=== PATIENT | female | born 1990 | race Caucasian/White ===

== ENCOUNTER → 2018-04-03 | Outpatient (CLI) | payer OTHER ==
[~2018-04-03] MED LIST: BACTRIM DS 8001 TA1 PO; CLEOCIN HCL150 MG PO; DULCOLAX5 MG PO; FLAGYL500 MG PO; GAS RELIEF80 MG PO; K-DUR 2020 MEQ PO; MOTRIN800 MG PO; PRENATAL1 TA1 PO; PYRIDIUM200 MG PO; TRAMADOL HCL50 MG PO; VICODIN 5/500 505 MG PO
== END | disposition home or self-care (01) ==
LOC: CT 07:48
DX: R10.2 Pelvic and perineal pain (principal); M79.9 Soft tissue disorder, unspecified

== ENCOUNTER → 2019-02-14 | Outpatient (CLI) | payer OTHER ==
--- NOTE | ~2019-02-14 | EKG ---
[place], [place] ELECTROCARDIOGRAM REPORT NAME: JAYDEN FERNANDO UNIT #: [id number] ROOM: DOCTOR: EPIPHANY DRAFT REPORT BIRTHDATE: [birth year] [facility] Test Date: 2019-02-14 Test Time: 10:39:06 Pat Name: JAYDEN FERNANDO Department: Room: OPS Gender: F Cosmetic Manager: Cande Petty : 1990 Requested By: GIANLUCA CHURCH Order Number: [id number] Reading MD: Mary Lou Fong MD Measurements Intervals [place] Rate: 60 P: 18 SC: 130 QRS: 13 QRSD: 91 T: -3 QT: 437 QTc: 437 Interpretive Statements Sinus rhythm Borderline T abnormalities, inferior leads Electronically Signed On 02-14-2019 15:50:19 PDT by Mary Lou Fong MD CM:EKGRPT:ELECTROCARDIOGRAM REPORT [id number] GIANLUCA CHURCH EPIPHANY DRAFT REPORT GIANLUCA CHURCH
[2019-02-14 10:22] LABS: BASO % 0.6 % (0.0-1.0); EOS # 0.1 10*3/uL (0.0-0.4); EOS % 1.5 % (1.0-4.0); HEMATOCRIT 40.6 % (37.0-47.0); HEMOGLOBIN 13.3 g/dl (12.0-16.0); LYMPH # 2.1 10*3/uL (1.3-4.4); LYMPH % 31.1 % (27.0-41.0); MEAN CELL VOLUME 87.3 fl (81.0-99.0); MEAN CORPUSCULAR HGB 28.6 pg (27.0-31.0); MEAN CORPUSCULAR HGB CONC 32.8 g/dl (33.0-37.0); MONO # 0.4 10*3/uL (0.1-1.0); MONO % 5.3 % (3.0-9.0); NEUT # 4.2 10*3/uL (2.3-7.9); NEUT % 61.2 % (47.0-73.0); PLATELET COUNT AUTOMATED 256 10*3/uL (130-400); RED BLOOD COUNT 4.65 10*6/uL (4.10-5.10); RED CELL DISTRI WIDTH 13.7 % (0-14.5); WHITE BLOOD COUNT 6.8 10*3/uL (4.8-10.8)
[2019-02-14 10:52] LABS: ACT PARTIAL THROMBO TIME 27.9 SECONDS (20.0-32.1); ALBUMIN 3.7 gm/dl (3.1-4.5); ALKALINE PHOSPHATASE 81 U/L (45-117); BUN 15 mg/dl (7-24); CHLORIDE 107 mmol/L (98-107); CHOLESTEROL 167 mg/dL (<200); CREATININE 0.76 mg/dL (0.55-1.02); HDL CHOLESTEROL 54 mg/dl (40-60); INTERNATIONAL NORM RATIO 0.9 (2.0-3.5); IRON 62 ug/dL (50-170); LDL CHOLESTEROL 89 mg/dL (9-159); PHOSPHOROUS 2.9 mg/dL (2.5-4.9); POTASSIUM 3.7 mmol/L (3.5-5.1); SGOT/AST 13 IU/L (3-35); SGPT/ALT 26 U/L (12-78); SODIUM 141 mmol/L (136-145); TOTAL IRON BINDING CAPACITY 382 ug/dl (250-450); TOTAL PROTEIN 7.9 gm/dL (6.4-8.2); TRIGLYCERIDES 120 mg/dl (<150); VLDL CHOLESTEROL 24 mg/dL (6-40)
[2019-02-14 12:29] LABS: FERRITIN 66.1 ng/mL (10.0-291.0); VITAMIN D, 25-HYDROXY 19.3 ng/mL (30-100)
[2019-02-16 00:07] LABS: LUPUS DRVVT 43.4 sec (0.0-47.0); LUPUS REFLEX INTERPRETATION Comment: (.)
[2019-02-16 01:09] LABS: ANTI-THROMBIN III ACTIVITY 108 % (75-135); FACTOR VIII ACTIVITY 086264 113 % (57-163); PROTEIN S-FUNCTIONAL 164525 91 % (63-140)
[2019-02-18 17:08] LABS: BETA-2 GLYCOPROTEIN I AB,IGA <9 (0-25); BETA-2 GLYCOPROTEIN I AB,IGG <9 (0-20); BETA-2 GLYCOPROTEIN I AB,IGM <9 (0-32)
== END | disposition home or self-care (01) ==
LOC: LAB 09:28
PROVIDERS: Specialist
DX: E66.01 Morbid (severe) obesity due to excess calories (principal); F32.9 Major depressive disorder, single episode, unspecified; F41.9 Anxiety disorder, unspecified; G43.909 Migraine, unspecified, not intractable, without status migrainosus; I10 Essential (primary) hypertension

== ENCOUNTER → 2024-11-29 | Outpatient (CLI) | payer OTHER | END | disposition home or self-care (01) | LOC: US 11-19 14:00 | PROVIDERS: ATTEND Nurse Practitioner Family | DX: R10.2 Pelvic and perineal pain (principal) ==